=== PATIENT | male | born 1935 | race Caucasian/White ===

== ENCOUNTER 2017-02-19 05:27 | Day surgery (SDC) | payer MEDICARE, OTHER ==
[2017-02-18 16:43] LABS: BASOPHILS 0.3 % (0-2); EOSINOPHILS 1.3 % (0-7); HEMATOCRIT 40.2 % (42.0-54.0); HEMOGLOBIN 13.7 g/dL (13.5-17.5); IMMATURE GRANULOCYTES 0.2 % (0-5); LYMPHOCYTES 29.3 % (15-50); MCHC 34.1 g/dL (31.0-37.0); MCV 96.9 fL (80.0-100.0); MEAN PLATELET VOLUME 9.3 fL (7.4-10.4); NEUTROPHILS 58.9 % (40-80); PLATELET COUNT 226 10x3/uL (130-400); RBC 4.15 10x6/uL (4.20-6.10); RDW 12.4 % (11.5-14.5); WBC 6.2 10x3/uL (4.8-10.8)
[2017-02-18 17:30] LABS: ANION GAP 10.9 mmol/L (8-16); CALCIUM 9.6 mg/dL (8.5-10.1); CARBON DIOXIDE 28.3 mmol/L (21.0-32.0); CREATININE - SERUM 1.2 mg/dL (0.6-1.3); POTASSIUM - SERUM 4.2 mmol/L (3.5-5.1)
[~2017-02-19] VITALS: Ht 172.7 cm; Wt 82.1 kg
--- NOTE | ~2017-02-19 | OP ---
PATIENT NAME: SUSIE GONZÁLES MEDICAL RECORD: [id number] :35 LOCATION:D.[facility] ADMISSION DATE: SURGEON: ALBERTO TREADWELL MD DATE OF OPERATION: 02/19/2017 SURGEON: Alberto Treadwell MD ANESTHESIA: General anesthesia by Samantha Santana CRNA. PREOPERATIVE DIAGNOSIS: Obstructive benign prostatic hypertrophy. POSTOPERATIVE DIAGNOSIS: Obstructive benign prostatic hypertrophy. PROCEDURES: Cystoscopy, GreenLight laser transurethral resection of the prostate, total energy 59,788 joules, laser on time 12 minutes and 27 seconds, power 80 mir. FINDINGS: Left lateral lobe hyperplasia causing bladder outlet obstruction. Single ureteral orifices bilaterally. No bladder tumors and trabeculated bladder. BLOOD LOSS: None. CLINICAL HISTORY: This is an 81-year-old male, who has obstructive voiding symptoms due to BPH. He has been on finasteride and an alpha mary for many years. His symptoms have progressed in spite of this. He had cystoscopy by urologist in [place] and he was told that he had an obstructive prostate. He is tired of his voiding symptoms, which include daytime frequency q.1 hours and nocturia times 5-6. He wants to have release surgically transurethral resection of the prostate using the GreenLight laser. Risks of the surgery were explained to him. He is allergic to PENICILLIN. He was given Levaquin IV conservation science teacher to the OR. DESCRIPTION OF PROCEDURE: The patient was given induction of general anesthesia. He was placed in the dorsal lithotomy position and prepped and draped. The patient has some urethral meatal stenosis preventing insertion of the laser resectoscope. We then used male sounds to dilate the urethral meatus to 26-Arabic. The scope could then be passed easily. He also had Uro-Jet lidocaine jelly placed into urethra. Going into the urethra with the scope, there was no urethral stricture. The prostate showed extreme hypertrophy of the left lateral lobe, which crossed over the midline to meet with the right lateral lobe. The right lateral lobe was not obstructive. Verumontanum was seen. The bladder neck was nonobstructive. Going into the bladder, the bladder was trabeculated due to chronic bladder outlet obstruction. Single ureteral orifices were seen at some distance away from the bladder neck. No bladder tumors were seen. We then introduced the laser fiber. Using a power of 80 mir, I first resected the posterior wall going from the bladder neck to just proximal to the verumontanum. The verumontanum was left intact throughout the case. I then resected the left lateral lobe. This was brought down to the prostatic capsule. At the apex, we encountered a slight bit of venous bleeding and this was treated with the coagulation mode of the laser. We did not resect beyond the verumontanum. Once the left lateral lobe was completely resected, we then resected the right lateral lobe, which did not require a lot of resection. At the end of the procedure, there was no bleeding venous or arterial visible. There was a nice channel going from the level of the verumontanum of the OPERATIVE REPORT [id number] ELIECER,SUSIE BELL prostate all the way into the bladder neck. We then removed the scope. A 22-Arabic 3-way Todd catheter was introduced into the bladder. The balloon was inflated with 30 cc of sterile water. The catheter was put to bag drainage. A catheter plug was used to obstruct the inflow port of the 3-way Todd catheter. The patient will be going home today with the catheter to bag drainage. I will see him in the office tomorrow to remove the catheter for a voiding trial. TRANSINT:[id number] Voice Confirmation ID: [id number] DOCUMENT ID: [id number] ALBERTO TREADWELL MD at 1315 CC: [id number] DICTATION DATE: 02/19/17 1540 COVER CUTTER: 02/19/17 1610 [facility] 02/19/17 [address] [place] [address]
[~2017-02-19 05:27] MED LIST: AVODART0.5 MG PO; BAYER CHEWABLE81 MG PO; CIALIS5 MG PO; FLOMAX0.4 MG PO; PRILOSEC20 MG PO; PROSCAR5 MG PO; SAW PALMETTO450 MG PO; VITAMIN D2000 UNIT PO
[2017-02-19 09:07] VITALS: Ht 172.7 cm; Wt 82.1 kg
== END 2017-02-19 17:15 | disposition home or self-care (01) ==
LOC: D.OPS 05:27 → D.PAN 10:10 → D.OPS 10:15 → D.PAN 10:15 → D.OPS 17:15
PROVIDERS: Anesthesiology
DX: N40.0 Benign prostatic hyperplasia without lower urinary tract symptoms (principal); K21.9 Gastro-esophageal reflux disease without esophagitis; Z87.891 Personal history of nicotine dependence; Z01.812 Encounter for preprocedural laboratory examination

== ENCOUNTER 2017-02-20 21:50 | Emergency (ER) | payer MEDICARE, OTHER ==
[2017-02-19 09:07] VITALS: BMI 27.5
[2017-02-20 23:19] LABS: APPEARANCE HAZY (CLEAR); COLOR YELLOW (YELLOW); NITRITE NEGATIVE (NEGATIVE)
[2017-02-20 23:20] LABS: AMORPHOUS SEDIMENT <1+ /lpf (NONE SEEN); BACTERIA NONE SEEN /hpf (NONE SEEN); BILIRUBIN NEGATIVE (NEGATIVE); EPITHELIAL CELLS RARE /hpf (0-5); GLUCOSE NEGATIVE (NEGATIVE); KETONE NEGATIVE (NEGATIVE); PROTEIN 1+ mg/dL (NEGATIVE); RED CELLS - URINE >50 /hpf (0-5); UROBILINOGEN NORMAL (NORMAL); WHITE CELLS - URINE RARE /hpf (0-5)
== END 2017-02-21 00:06 | disposition home or self-care (01) ==
LOC: D.ER 21:50
PROVIDERS: Family Medicine
DX: R33.9 Retention of urine, unspecified (principal)

== ENCOUNTER → 2017-03-30 18:22 | Outpatient (CLI) | payer MEDICARE, OTHER ==
[2017-02-19 09:07] VITALS: BMI 27.5
== END | disposition home or self-care (01) ==
LOC: D.LABREF 18:22
DX: N39.0 Urinary tract infection, site not specified (principal)

== ENCOUNTER 2017-11-17 08:00 | Inpatient (IN) | payer MEDICARE, OTHER ==
[2017-11-16 11:35] LABS: BASOPHILS 0.2 % (0-2); EOSINOPHILS 1.4 % (0-7); HEMATOCRIT 40.3 % (42.0-54.0); HEMOGLOBIN 13.6 g/dL (13.5-17.5); IMMATURE GRANULOCYTES 0.3 % (0-5); LYMPHOCYTES 25.2 % (15-50); MCH 29.7 pg (26.0-34.0); MCHC 33.7 g/dL (31.0-37.0); MEAN PLATELET VOLUME 8.8 fL (7.4-10.4); MONOCYTES 9.2 % (2-11); NEUTROPHILS 63.7 % (40-80); PLATELET COUNT 226 10x3/uL (130-400); RBC 4.58 10x6/uL (4.20-6.10); WBC 6.4 10x3/uL (4.8-10.8)
[2017-11-16 11:48] LABS: ANION GAP 10.4 mmol/L (8-16); CALCIUM 9.1 mg/dL (8.5-10.1); CARBON DIOXIDE 28.7 mmol/L (21.0-32.0); CREATININE - SERUM 1.1 mg/dL (0.6-1.3); POTASSIUM - SERUM 4.1 mmol/L (3.5-5.1)
[~2017-11-17] VITALS: Ht 172.7 cm; Wt 78.9 kg
[2017-11-17] VITALS (10 sets, daily range): BP systolic 131–165; BP diastolic 65–80; BMI 26.5
--- NOTE | ~2017-11-17 | OP ---
PATIENT NAME: SUSIE GONZÁLES MEDICAL RECORD: [id number] :35 LOCATION:D[id number] ADMISSION DATE:11/17/17 SURGEON: JASSON MATHEWS MD DATE OF OPERATION: 11/17/2017 PREOPERATIVE DIAGNOSES: 1. Right colon adenocarcinoma. 2. Benign prostatic hypertrophy. POSTOPERATIVE DIAGNOSES: 1. Right colon adenocarcinoma. 2. Benign prostatic hypertrophy. PROCEDURE: Hand-assisted laparoscopic right hemicolectomy. SURGEON: aJsson Mathews MD SECURITY RISK ANALYST: Kimberley Lynne MD REPORT OF PROCEDURE: The patient's abdomen was prepped and draped in sterile fashion. A skin incision was made around the patient's umbilicus and electrocautery was used to dissect through the subcutaneous tissues and fascia. Once inside the abdominal cavity, a GelPort ring was inserted. The GelPort had a 5-mm trocar within it. With this, we insufflated the abdomen and we were able to place a 5-mm trocar in the epigastrium and another 5-mm trocar in the right subcostal region. We performed ligation of some adhesions that were present from her previous laparoscopic cholecystectomy and appendectomy. These adhesions to the anterior and lateral abdominal arana were taken down using electrocautery. We continued our dissection of the right colon, mobilizing this medially and then taking down any adhesions to the small bowel. We mobilized the patient's hepatic flexure and continued our dissection over the transverse colon, it from the attachments to the stomach. There were a few bleeding vessels present, which were treated with clips. Once we had the right colon significantly mobilized and it was eviscerated through the wound protector. We transected the small bowel about 5 cm proximal to the ileocecal valve using a 60 blue load JEANMARIE stapler. The proximal transverse colon was transected using a 60 blue load JEANMARIE stapler. The mesentery was then taken down using sequential clamp and tie technique using 3-0 silks. Once the specimen was removed, it was opened up and inspected and the mass was noted to be in the middle of the specimen with clear gross margins. A bktj-hh-[id number] anastomosis was then performed using a 70 blue load JEANMARIE stapler and the enterotomies were closed with a 30 blue load TA stapler. I oversewed the staple lines using Lemberted 3-0 silks and then placed the anastomosis back into the abdominal cavity. We reinspected the abdomen and assured the bowel was resting in good position was not twisted. There was no sign of any active bleeding. We then irrigated out the abdomen thoroughly with normal saline. The midline fascia was then closed with running #1 loop PDS times 2 and the skin was closed with lisa. COMPLICATIONS: None. CONDITION: Stable. ANESTHESIA: General endotracheal. BLOOD LOSS: Minimal. OPERATIVE REPORT [id number] SUSIE GONZÁLES TRANSINT:[id number] Voice Confirmation ID: [id number] DOCUMENT ID: [id number] JASSON MATHEWS MD at 1714 CC: NELI SLATER and OMER FONSECA MD [id number] DICTATION DATE: 11/17/17 1252 TESTER SEMICONDUCTOR PACKAGES: 11/17/17 1304 [facility] 11/20/17 [facility] [address] [place] [address]
[~2017-11-17 08:00] MED LIST changes: +FERROUS SULFAT325 MG PO; +PRESERVISION PO; +PROTONIX20 MG PO
[2017-11-18 05:32] LABS: BASOPHILS 0.1 % (0-2); EOSINOPHILS 0 % (0-7); HEMATOCRIT 36.1 % (42.0-54.0); IMMATURE GRANULOCYTES 0.3 % (0-5); LYMPHOCYTES 7.8 % (15-50); MCH 29.5 pg (26.0-34.0); MCHC 33.2 g/dL (31.0-37.0); MCV 88.7 fL (80.0-100.0); MEAN PLATELET VOLUME 9.3 fL (7.4-10.4); MONOCYTES 8.6 % (2-11); NEUTROPHILS 83.2 % (40-80); PLATELET COUNT 237 10x3/uL (130-400); RBC 4.07 10x6/uL (4.20-6.10); RDW 22.5 % (11.5-14.5)
[2017-11-18 05:41] LABS: WBC 9.7 10x3/uL (4.8-10.8)
[2017-11-18 05:46] VITALS: BP 140/86
[2017-11-18 05:51] LABS: CALC OSMOLALITY 272 mosm/kg (275-300); CALCIUM 7.9 mg/dL (8.5-10.1); CARBON DIOXIDE 22.5 mmol/L (21.0-32.0); CHLORIDE - SERUM 103 mmol/L (98-107); GLUCOSE 100 mg/dL (74-106); POTASSIUM - SERUM 4.6 mmol/L (3.5-5.1); SODIUM 137 mmol/L (136-145); UREA NITROGEN 10 mg/dL (7-18); eGFR NON AFRICAN AMERICAN 76 mL/min (90-120)
[2017-11-18 08:51] VITALS: BP 158/74
[2017-11-18 12:45] VITALS: BP 136/73
[2017-11-18 12:59] VITALS: Ht 172.7 cm; Wt 78.9 kg
[2017-11-18 16:48] VITALS: BP 163/79
[2017-11-19 05:41] VITALS: BP 159/64
[2017-11-19 05:43] LABS: BASOPHILS 0.1 % (0-2); EOSINOPHILS 2.5 % (0-7); HEMATOCRIT 31.4 % (42.0-54.0); HEMOGLOBIN 10.5 g/dL (13.5-17.5); IMMATURE GRANULOCYTES 0.1 % (0-5); MCH 29.5 pg (26.0-34.0); MCHC 33.4 g/dL (31.0-37.0); MCV 88.2 fL (80.0-100.0); MEAN PLATELET VOLUME 9.1 fL (7.4-10.4); NEUTROPHILS 79.3 % (40-80); PLATELET COUNT 190 10x3/uL (130-400); RBC 3.56 10x6/uL (4.20-6.10); RDW 22.7 % (11.5-14.5)
[2017-11-19 06:10] LABS: CALCIUM 7.9 mg/dL (8.5-10.1); CARBON DIOXIDE 22.1 mmol/L (21.0-32.0); CHLORIDE - SERUM 104 mmol/L (98-107); GLUCOSE 93 mg/dL (74-106); SODIUM 136 mmol/L (136-145); eGFR NON AFRICAN AMERICAN 76 mL/min (90-120)
[2017-11-19 06:11] LABS: CALC OSMOLALITY 272 mosm/kg (275-300); POTASSIUM - SERUM 3.8 mmol/L (3.5-5.1); UREA NITROGEN 14 mg/dL (7-18)
[2017-11-19 10:48] VITALS: BP 168/88
[2017-11-19 13:31] VITALS: BP 151/80
[2017-11-19 16:48] VITALS: BP 164/77
[2017-11-19 20:00] VITALS: BP 102/72
[2017-11-20 04:00] VITALS: BP 156/78
[2017-11-20 05:57] LABS: CALC OSMOLALITY 268 mosm/kg (275-300); CALCIUM 8.2 mg/dL (8.5-10.1); CARBON DIOXIDE 25.9 mmol/L (21.0-32.0); CHLORIDE - SERUM 103 mmol/L (98-107); CREATININE - SERUM 0.9 mg/dL (0.6-1.3); GLUCOSE 89 mg/dL (74-106); POTASSIUM - SERUM 3.5 mmol/L (3.5-5.1); SODIUM 135 mmol/L (136-145); UREA NITROGEN 13 mg/dL (7-18); eGFR NON AFRICAN AMERICAN 86 mL/min (90-120)
[2017-11-20 06:15] LABS: BASOPHILS 0.2 % (0-2); EOSINOPHILS 7.1 % (0-7); HEMATOCRIT 27.6 % (42.0-54.0); HEMOGLOBIN 9.2 g/dL (13.5-17.5); IMMATURE GRANULOCYTES 0.2 % (0-5); LYMPHOCYTES 21.4 % (15-50); MCH 28.9 pg (26.0-34.0); MCHC 33.3 g/dL (31.0-37.0); MCV 86.8 fL (80.0-100.0); MEAN PLATELET VOLUME 9.2 fL (7.4-10.4); MONOCYTES 9.7 % (2-11); NEUTROPHILS 61.4 % (40-80); PLATELET COUNT 192 10x3/uL (130-400); RBC 3.18 10x6/uL (4.20-6.10); RDW 22.5 % (11.5-14.5)
[2017-11-20 06:47] LABS: WBC 5.7 10x3/uL (4.8-10.8)
[2017-11-20 08:48] VITALS: BP 159/84
[2017-11-20] MEDS ORDERED: NORCO 10-325 TA1 TAB PO (09:58)
== END 2017-11-20 11:42 | disposition home or self-care (01) | DRG 331 ==
LOC: D.SDCHOLD 08:00 → D.MS 08:51 → D.SDCHOLD 08:51 → D.MS 13:22
PROVIDERS: Anesthesiology; Surgery
PROC: 0DTF0ZZ Resection of Right Large Intestine, Open Approach (ICD-10-PCS; principal; 2017-11-17 10:00)
DX: C18.2 Malignant neoplasm of ascending colon (principal); N40.0 Benign prostatic hyperplasia without lower urinary tract symptoms

== ENCOUNTER 2018-03-19 05:40 | Day surgery (SDC) | payer MEDICARE, OTHER ==
[2017-11-18 12:59] VITALS: Ht 172.7 cm; Wt 82.6 kg
[2018-03-18 15:13] LABS: BASOPHILS 0.5 % (0-2); EOSINOPHILS 2.4 % (0-7); IMMATURE GRANULOCYTES 0.2 % (0-5); LYMPHOCYTES 29.1 % (15-50); MCH 25.8 pg (26.0-34.0); MCHC 31.3 g/dL (31.0-37.0); MCV 82.5 fL (80.0-100.0); MEAN PLATELET VOLUME 9.1 fL (7.4-10.4); NEUTROPHILS 58.8 % (40-80); RBC 3.88 10x6/uL (4.20-6.10); RDW 17.5 % (11.5-14.5); WBC 6.2 10x3/uL (4.8-10.8)
[2018-03-18 15:17] LABS: PLATELET COUNT 289 10x3/uL (130-400)
[2018-03-18 15:24] LABS: ANION GAP 14.6 mmol/L (8-16); CALCIUM 8.7 mg/dL (8.5-10.1); CARBON DIOXIDE 26.6 mmol/L (21.0-32.0); CREATININE - SERUM 1.3 mg/dL (0.6-1.3); POTASSIUM - SERUM 4.2 mmol/L (3.5-5.1)
[2018-03-18 15:26] LABS: APTT 28.9 SECONDS (22.8-39.4); INR 1.05 (0.85-1.17); PROTIME 13.2 SECONDS (11.6-15.0)
[~2018-03-19] VITALS: Ht 172.7 cm; Wt 82.6 kg
--- NOTE | ~2018-03-19 | OP ---
PATIENT NAME: SUSIE GONZÁLES MEDICAL RECORD: [id number] :35 LOCATION:D.OPS ADMISSION DATE: SURGEON: JASSON MATHEWS MD DATE OF OPERATION: 03/19/2018 PREOPERATIVE DIAGNOSES: 1. Right inguinal hernia. 2. Benign prostatic hypertrophy. 3. History of stage I colon cancer. POSTOPERATIVE DIAGNOSES: 1. Right inguinal hernia. 2. Benign prostatic hypertrophy. 3. History of stage I colon cancer. PROCEDURE: Right inguinal hernia repair with medium PHS mesh. SURGEON: Jasson Mathews MD MEDICAL CENTER DIRECTOR: Kimberley Lynne APRN REPORT OF PROCEDURE: The patient's abdomen was prepped and draped in sterile fashion. An oblique incision was made above the inguinal ligament. Electrocautery was used to dissect through the subcutaneous tissues, down to the external oblique fascia. This fascia was opened up to the external ring using electrocautery. The ilioinguinal nerve was found and high ligated. A Raj was then placed around the spermatic cord. The patient had a large indirect hernia sac, this was associated with a large cord lipoma. We were able to dissect these free from the spermatic cord and they were pushed back into the abdominal cavity. A window was made in the inguinal floor and the preperitoneal space of Retzius was opened up in all directions. A medium PHS mesh was inserted and sutured down on all sides using multiple interrupted 0 Vicryls. We irrigated out the wound and assured there was no sign of any bleeding. The external oblique fascia was closed with running 2-0 Vicryl, Samuel's was closed with interrupted 3-0 Vicryl and the skin was closed with running subcutaneous 5-0 Monocryl. COMPLICATIONS: None. CONDITION: Stable. ANESTHESIA: General endotracheal and local. BLOOD LOSS: Minimal. TRANSINT:[id number] Voice Confirmation ID: [id number] DOCUMENT ID: [id number] OPERATIVE REPORT [id number] ELIECERJASSON VELASQUEZ MD CC: NELI SLATER [id number] DICTATION DATE: 03/19/18912 HEALTHCARE INTERPRETER: 03/19/18 1033 [facility] [address] [place] [address]
[~2018-03-19 05:40] MED LIST changes: +NORCO 10-325 TA1 TAB PO
[2018-03-19] MEDS ORDERED: NORCO 10-325 TA1 TAB PO (09:09)
--- NOTE | 2018-03-19 11:15 | NUR ---
PATIENT AMBULATES TO BATHROOM WITHOUT DIZZINESS, VOIDS IN TOILET WITHOUT DIFFICULTY. LEFT HAND PIV DC'D WITH TIP INTACT. PATIENT DRESSING IN PERSONAL CLOTHING WITH SPOUSE IN ROOM
== END 2018-03-19 11:30 | disposition home or self-care (01) ==
LOC: D.OPS 05:40 → D.PAN 08:00 → D.OPS 08:00
PROVIDERS: Anesthesiology; Surgery
DX: K40.90 Unilateral inguinal hernia, without obstruction or gangrene, not specified as recurrent (principal)

== ENCOUNTER 2018-07-06 05:45 | Day surgery (SDC) | payer MEDICARE, OTHER ==
[2018-07-05 09:38] LABS: BASOPHILS 0.5 % (0-2); EOSINOPHILS 4.1 % (0-7); HEMATOCRIT 42.9 % (42.0-54.0); HEMOGLOBIN 14.6 g/dL (13.5-17.5); IMMATURE GRANULOCYTES 0.5 % (0-5); LYMPHOCYTES 29.3 % (15-50); MCH 31.2 pg (26.0-34.0); MCV 91.7 fL (80.0-100.0); MEAN PLATELET VOLUME 9.2 fL (7.4-10.4); MONOCYTES 10.6 % (2-11); RBC 4.68 10x6/uL (4.20-6.10); RDW 16.8 % (11.5-14.5); WBC 5.6 10x3/uL (4.8-10.8)
[2018-07-05 09:41] LABS: PLATELET COUNT 225 10x3/uL (130-400)
[2018-07-05 09:50] LABS: APTT 27.4 SECONDS (22.8-39.4); INR 0.97 (0.85-1.17); PROTIME 12.4 SECONDS (11.6-15.0)
[2018-07-05 09:54] LABS: ALBUMIN 3.7 g/dL (3.4-5.0); ANION GAP 11.6 mmol/L (8-16); BILIRUBIN - DIRECT 0.12 mg/dL (0.00-0.30); BILIRUBIN - INDIRECT 0.28 mg/dL (0.00-1.00); BILIRUBIN - TOTAL 0.4 mg/dL (0.2-1.3); CARBON DIOXIDE 27.8 mmol/L (21.0-32.0); CREATININE - SERUM 1.1 mg/dL (0.6-1.3); POTASSIUM - SERUM 4.4 mmol/L (3.5-5.1); PROTEIN - SERUM 7.2 g/dL (6.4-8.2)
[~2018-07-06] VITALS: Ht 172.7 cm; Wt 82.6 kg
[2018-07-06 06:33] VITALS: BP 140/81; Ht 172.7 cm; Wt 82.6 kg
[2018-07-06] MEDS ORDERED: HYDROCODON-ACE1 EA10 PO (10:31)
--- NOTE | 2018-07-06 14:42 | NUR ---
1355 BLADDER SCAN DONE AND PT HAD 370ML URINE. DR MATHEWS NOTIFIED AND NO ORDERS GIVEN AT THIS TIME.
--- NOTE | 2018-07-06 15:22 | NUR ---
BLADDER SCAN PT AND RECIEVED 603ML DR MATHEWS CALLED
--- NOTE | 2018-07-06 15:56 | NUR ---
1545 PT CATH AND RECIEVED 300ML CLEAR YELLOW URINE.
--- NOTE | 2018-07-06 15:57 | NUR ---
IV REMOVED 3007
--- NOTE | 2018-07-09 09:41 | OP ---
PATIENT NAME: SUSIE GONZÁLES MEDICAL RECORD: [id number] :35 LOCATION:D.OPS ADMISSION DATE: SURGEON: JASSON MATHEWS MD DATE OF OPERATION: 07/06/2018 PREOPERATIVE DIAGNOSES: 1. Ventral incisional hernia. 2. History of stage I colon cancer. 3. Benign prostatic hypertrophy. POSTOPERATIVE DIAGNOSES: 1. Ventral incisional hernia. 2. History of stage I colon cancer. 3. Benign prostatic hypertrophy. PROCEDURE: Ventral hernia repair with 6.[address] mesh. SURGEON: Jasson Mathews MD REPORT OF PROCEDURE: The patient's abdomen was prepped and draped in sterile fashion. A skin incision was made in the midline just above the umbilicus. Electrocautery was used to dissect through the subcutaneous tissues. We encountered a hernia sac, which had no contents within it. The hernia sac was removed down to the fascial edges. As we continued our dissection out from this area trying to free up the fascia, we noted that there was another hernia defect just above the umbilicus. The 2 defects were approximately 2 cm in greatest diameter. The hernia sacs were removed and we cleared out the surface above and below the fascia in all directions. A 6.[address] hernia patch mesh was inserted in an underlay fashion and sutured down on all 4 sides using interrupted 0 Prolenes. The fascia was then closed over top of the mesh using running 0 Vicryl. The wound was then irrigated out with normal saline. The subcutaneous tissues were reapproximated with interrupted 3-0 Vicryl and then infused with 10 mL of 0.25% Marcaine with epinephrine. The skin incision was closed with subcutaneous running 5-0 Monocryl and dressed appropriately. COMPLICATIONS: None. CONDITION: Stable. ANESTHESIA: General endotracheal and local. BLOOD LOSS: Minimal. TRANSINT:[id number] Voice Confirmation ID: [id number] DOCUMENT ID: [id number] JASSON MATHEWS MD at 0941 CC: NELI SLATER [id number] DICTATION DATE: 07/06/18 1020 STOCK OR DELIVERY CLERK: 07/06/18 1117 [facility] 07/06/18 [place] [address]
== END 2018-07-06 16:10 | disposition home or self-care (01) ==
LOC: D.OPS 05:45 → D.PAN 08:00 → D.OPS 09:00
PROVIDERS: Anesthesiology; ATTEND Surgery
DX: K43.2 Incisional hernia without obstruction or gangrene (principal); Z85.038 Personal history of other malignant neoplasm of large intestine; N40.0 Benign prostatic hyperplasia without lower urinary tract symptoms; Z01.812 Encounter for preprocedural laboratory examination

== ENCOUNTER → 2019-01-25 09:18 | Outpatient (CLI) | payer MEDICARE, OTHER ==
[2018-07-06 06:33] VITALS: BMI 27.7
[~2019-01-25 09:18] MED LIST changes: +HYDROCODON-ACE1 EA10 PO
[2019-01-25 09:48] LABS: BASOPHILS 0.2 % (0-2); HEMATOCRIT 42.5 % (42.0-54.0); HEMOGLOBIN 14.5 g/dL (13.5-17.5); IMMATURE GRANULOCYTES 0.5 % (0-5); MCH 33.5 pg (26.0-34.0); MCHC 34.1 g/dL (31.0-37.0); MCV 98.2 fL (80.0-100.0); MEAN PLATELET VOLUME 9.2 fL (7.4-10.4); MONOCYTES 10.5 % (2-11); NEUTROPHILS 63.8 % (40-80); PLATELET COUNT 252 10x3/uL (130-400); RBC 4.33 10x6/uL (4.20-6.10); RDW 12.6 % (11.5-14.5); WBC 5.8 10x3/uL (4.8-10.8)
[2019-01-25 10:05] LABS: ALBUMIN 3.6 g/dL (3.4-5.0); BILIRUBIN - DIRECT 0.12 mg/dL (0.00-0.30); BILIRUBIN - INDIRECT 0.4 mg/dL (0.00-1.00); BILIRUBIN - TOTAL 0.52 mg/dL (0.2-1.3); PROTEIN - SERUM 7.2 g/dL (6.4-8.2)
== END | disposition home or self-care (01) ==
LOC: D.LAB 09:18 → D.CT 10:00
PROVIDERS: ATTEND Surgery
DX: C18.2 Malignant neoplasm of ascending colon (principal)

== ENCOUNTER → 2019-08-03 11:07 | Outpatient (CLI) | payer MEDICARE, OTHER ==
[2018-07-06 06:33] VITALS: BMI 27.7
[2019-08-03 12:11] LABS: BASOPHILS 0.2 % (0-2); HEMATOCRIT 41.2 % (42.0-54.0); HEMOGLOBIN 13.5 g/dL (13.5-17.5); IMMATURE GRANULOCYTES 0.2 % (0-5); LYMPHOCYTES 27.8 % (15-50); MCH 32.1 pg (26.0-34.0); MCHC 32.8 g/dL (31.0-37.0); MCV 97.9 fL (80.0-100.0); MONOCYTES 9.8 % (2-11); PLATELET COUNT 269 10x3/uL (130-400); RBC 4.21 10x6/uL (4.20-6.10); RDW 12.1 % (11.5-14.5); WBC 5.6 10x3/uL (4.8-10.8)
[2019-08-03 12:14] LABS: ALBUMIN 3.8 g/dL (3.4-5.0); BILIRUBIN - DIRECT 0.1 mg/dL (0.00-0.30); BILIRUBIN - INDIRECT 0.43 mg/dL (0.00-1.00); BILIRUBIN - TOTAL 0.53 mg/dL (0.2-1.3); PROTEIN - SERUM 7.3 g/dL (6.4-8.2)
== END | disposition home or self-care (01) ==
LOC: D.LAB 11:07
PROVIDERS: ATTEND Surgery
DX: Z85.038 Personal history of other malignant neoplasm of large intestine (principal)

== ENCOUNTER → 2019-11-04 08:19 | Outpatient (CLI) | payer MEDICARE, OTHER ==
[2018-07-06 06:33] VITALS: BMI 27.7
[2019-11-04 10:41] LABS: BASOPHILS 0.4 % (0-2); HEMATOCRIT 35.9 % (42.0-54.0); HEMOGLOBIN 11.7 g/dL (13.5-17.5); IMMATURE GRANULOCYTES 1.3 % (0-5); LYMPHOCYTES 22.3 % (15-50); MCH 32.5 pg (26.0-34.0); MCHC 32.6 g/dL (31.0-37.0); MCV 99.7 fL (80.0-100.0); MEAN PLATELET VOLUME 8.5 fL (7.4-10.4); MONOCYTES 9.7 % (2-11); NEUTROPHILS 62.3 % (40-80); RDW 12.6 % (11.5-14.5); WBC 4.8 10x3/uL (4.8-10.8)
[2019-11-04 10:42] LABS: PLATELET COUNT 213 10x3/uL (130-400)
[2019-11-04 10:48] LABS: ALBUMIN 3.4 g/dL (3.4-5.0); BILIRUBIN - DIRECT 0.11 mg/dL (0.00-0.30); BILIRUBIN - INDIRECT 0.18 mg/dL (0.00-1.00); BILIRUBIN - TOTAL 0.29 mg/dL (0.2-1.3); PROTEIN - SERUM 6.5 g/dL (6.4-8.2)
== END | disposition home or self-care (01) ==
LOC: D.CT 08:19
PROVIDERS: ATTEND Surgery
DX: C18.9 Malignant neoplasm of colon, unspecified (principal)

== ENCOUNTER → 2020-07-05 14:26 | Outpatient (CLI) | payer MEDICARE, OTHER ==
[2020-04-05 13:03] VITALS: BMI 26.6
== END | disposition home or self-care (01) ==
LOC: D.MRI 14:26
PROVIDERS: ATTEND Clinical Nurse Specialist Family Health
DX: M54.16 Radiculopathy, lumbar region (principal)